=== PATIENT | female | born 2000 | race Hispanic/Latino ===

== ENCOUNTER 2024-02-11 07:25 | Emergency (ER) | payer SELFPAY ==
[2024-02-11] VITALS (9 sets, daily range): BP systolic 124–164; BP diastolic 59–79; PULSE 68–95; RESP 19; TEMP 37.2; O2SAT 94–100; BMI 46.0
--- NOTE | 2024-02-11 07:57 | ED.ABDPAIN ---
HPI - Abdominal Pain General Chief Complaint: Abdominal Pain Stated Complaint: r side abd pain, nausea Time Seen by Provider: 02/11/24 07:55 Source: patient Mode of arrival: Wheelchair History of Present Illness HPI narrative: Patient 23-year-old female remote history of ovarian cyst presenting today with severe right lower quadrant pain. She reports it started yesterday definitely starts in her right lower quadrant that radiates down her leg. She is unable to get comfortable. She is very minimal back pain. She feels nauseous. No vomiting she has not taken anything for pain. No fever or chills no painful frequent urination. Related Data Previous Rx's Medication Instructions Recorded cephalexin 500 mg capsule 500 mg PO BID 7 days #14 caps 02/11/24 hydrocodone 5 mg-acetaminophen 325 1 tab PO Q6H PRN pain #20 tabs 02/11/24 mg tablet ondansetron 4 mg disintegrating 4 mg PO Q8H PRN nausea and 02/11/24 tablet vomiting #10 tabs tamsulosin 0.4 mg capsule (Flomax) 0.4 mg PO BEDTIME #10 caps 02/11/24 Allergies Allergy/AdvReac Type Severity Reaction Status Date / Time No Known Drug Allergies Allergy Verified 02/11/24 07:46 Patient History Social History Smoking Status: Current every day smoker Smoking Status: Current every day smoker tobacco type: e-cigarettes and vaping alcohol intake frequency: holidays/special occasions only Substance Use Type: marijuana Exam Initial Vital Signs Initial Vital Signs: Vital Signs Temperature 99 F 02/11/24 07:41 Pulse Rate 87 02/11/24 07:41 Respiratory Rate 19 02/11/24 07:41 Blood Pressure 164/79 H 02/11/24 07:41 Pulse Oximetry 100 02/11/24 07:41 Oxygen Delivery Method Room Air 02/11/24 07:41 Course Orders Ordered: Discontinued Medications Ketorolac Tromethamine (Ketorolac 30 Mg/Ml Vial) 30 mg IV NOW ONE Stop: 02/11/24 08:06 Last Admin: 02/11/24 08:29 Dose: 30 mg Documented By: ALICIA Ondansetron HCl (Ondansetron 4 Mg Odt) 4 mg SL NOW PRN PRN Reason: Nausea And Vomiting Ondansetron HCl (Ondansetron 4 Mg/2 Ml Inj) 4 mg IV NOW PRN PRN Reason: Nausea And Vomiting Last Admin: 02/11/24 08:32 Dose: 4 mg Documented By: ALICIA Vital Signs Vital signs: Vital Signs - 8 hr 02/11/24 07:41 02/11/24 08:01 02/11/24 08:30 Temperature 99 F Pulse Rate 87 95 H Respiratory Rate 19 Blood Pressure 164/79 H 140/77 Pulse Oximetry 100 99 Oxygen Delivery Method Room Air 02/11/24 08:30 02/11/24 09:00 02/11/24 09:01 Temperature Pulse Rate 71 75 70 Respiratory Rate Blood Pressure Pulse Oximetry 99 97 98 Oxygen Delivery Method Room Air Room Air 02/11/24 09:01 02/11/24 09:30 02/11/24 10:00 Temperature Pulse Rate 76 73 Respiratory Rate Blood Pressure 145/66 H Pulse Oximetry 98 94 Oxygen Delivery Method Room Air MDM - Abdominal Pain Lab Data 02/11/24 07:59 02/11/24 07:59 Labs: Lab Results 02/11/24 02/11/24 Range/Units 07:59 08:19 WBC 11.3 H (4.5-11.0) X10^3/uL RBC 4.76 (4.0-5.2) X10^6/uL Hgb 13.8 (12.0-16.0) g/dL Hct 40.5 (36-46) % MCV 85.1 (80-100) fL MCH 29.0 (26-34) PG MCHC 34.1 (30-36) % RDW 12.5 (11.6-14.8) % Plt Count 310 (150-400) X10^3/uL Neut % (Auto) 60.5 (50-75) % Lymph % (Auto) 33.1 (25-40) % [place] % (Auto) 5.1 (3-14) % Eos % (Auto) 0.8 L (2-4) % Baso % (Auto) 0.5 (0-2) % Neut # (Auto) 6900 (0803-2319) /uL Lymph # (Auto) 3700 (7497-2010) /uL [place] # (Auto) 600 (0-900) /uL Eos # (Auto) 100 (0-450) /uL Baso # (Auto) 100 (0-100) /uL Sodium 140 (137-145) mmol/L Potassium 3.6 (3.4-5.1) mmol/L Chloride 106 (98-107) mmol/L Carbon Dioxide 25 (22-32) mmol/L BUN 8 (7-17) mg/dL Creatinine 0.67 (0.52-1.04) mg/dL Estimated GFR > 60 (>60) mL/min BUN/Creatinine Ratio 11.9 (6-22) Glucose 101 H (70-100) mg/dL Calcium 9.3 (8.4-10.2) mg/dL Total Bilirubin 0.7 (0.2-1.3) mg/dL AST 61 H (14-36) IU/L ALT 85 H (<35) IU/L Alkaline Phosphatase 78 (38-126) U/L Total Protein 8.1 (6.3-8.2) g/dL Albumin 4.7 (3.5-5.0) g/dL Globulin 3.4 (1.7-4.1) g/dL Albumin/Globulin Ratio 1.4 (1.0-2.8) Lipase 55 (23-300) U/L Urine RBC 10-30/hpf H (0-5/HPF) Urine WBC 30-100/hpf H (0-5/HPF) Ur Squamous Epith Cells 5-10 /hpf H (0-5/HPF) Urine Bacteria Many (>30) H (None) Ur Culture Indicated? Specimen cultured Vol Urine Centrifuged 10ml (spun) Point of care testing: Point of Care Testing Test Results Negative Urine Dip Bedside Urine Glucose Negative Bedside Urine Bilirubin - Negative Bedside Urine Ketone - Negative Urine Specific [place] 1.030 Bedside Urine Occult Blood +++ Bedside Urine pH 6.0 Bedside Urine Protein + 30 Bedside Urine Urobilinogen - Negative Bedside Urine Nitrite - Negative Bedside Urine Leukocytes +/- [address] scan - abdomen/pelvis: Radiologist's Impression: PROCEDURE: CT ABDOMEN PELVIS W CON INDICATIONS: RLQ pain TECHNIQUE: After the administration of intravenous contrast, axial sections acquired from the lung bases to the pubic symphysis. Coronal and sagittal reformats were performed. For radiation dose reduction, the following was used: automated exposure control, adjustment of mA and/or kV according to patient size. COMPARISON: None. FINDINGS: Image quality: Diagnostic. Lower Chest: No significant findings. ABDOMEN: Liver: No solid mass. Gallbladder: No radiopaque gallstones or wall thickening. Biliary ducts: No biliary dilation. Pancreas: No ductal dilation. Spleen: Size is within normal limits. Adrenal Glands: No adrenal nodules. Kidneys and Ureters: 5 x 7 millimeter stone within the right UVJ (411 Hounsfield unit), resulting moderate hydronephrosis, hydroureter and delayed nephrogram. Additional single nonobstructing right-sided nephrolithiasis measuring 4 millimeters. Stomach and Bowel: Normal colonic caliber, without significant wall thickening. Peritoneum: No abnormal intraperitoneal fluid. No free air. Ventral Wall: No significant ventral hernia. Small umbilical hernia containing fat. Abdominal Nodes: No retroperitoneal or mesenteric adenopathy by size criteria. Vessels: Aorta and inferior vena cava are normal in size. PELVIS: Pelvic Organs: Bilateral hemorrhagic ovarian cysts versus endometriomas measuring 4.3 centimeters on the right and 3.4 centimeters on the left. Bladder: No bladder wall thickening, accounting for underdistention. Pelvic Nodes: No enlarged lymph nodes. Miscellaneous: No inguinal hernias are seen. Bones: No aggressive osseous abnormality. IMPRESSION: Obstructing 5 x 7 millimeter stone in the right UVJ, resulting in moderate hydronephrosis and delayed nephrogram. Bilateral hemorrhagic ovarian cysts versus endometriomas. These could be further evaluated with pelvic ultrasound if necessary. Dictated by: Jose Issa M.D. on 02/11/2024 at 9:33 MDM Narrative Medical decision making narrative: Patient 23-year-old female presents today with quadrant pain yesterday rate down her leg tender and appears very uncomfortable. Blood work WBC 11.3 no significant anemia, CMP no electrolyte abnormalities creatinine 0.67, bilirubin 0.7, AST 61, ALT 85 lipase 55 Urinalysis does show some leukocytes and blood Imaging reviewed CT does show obstructing 5 x 7 mm stone at the UVJ with moderate hydro nephrosis Patient received Toradol and Zofran here in the ED overall feeling a bit better. At this time she does have obstructing right-sided stones 5 x 7 mm she may pass this on her own recommend urology outpatient follow-up and pain control. We will put her on antibiotics along with anti nausea medication and pain medication for home management. Patient reports that she is actually going back home to [place] in 1 week. Encourage her to follow-up with urology unlikely she will be able to get in with ours encouraged her to call her PCP to schedule urology. She has given a disc with her CT scan. Discharge Plan Departure Patient Disposition: Home Clinical Impression: Kidney stones Instructions: DI for Kidney Stones Activity Restrictions/Additional Instructions: *You have been diagnosed with kidney stone *What to do: At this time you do have a 5 x 7mm kidney stone on the right side. You may require help passing it with Urology. At this time your kidney function looks good. *Continue to take medications as directed Motrin 600 mg every 6 hours for lgjo-in-ataiafyh pain Zofran 4 mg every 8 hours for nausea or vomiting [place] 1 tablet every 6 hours for moderate to severe pain Keflex 500 mg twice a day for 7 days for infection Flomax at night-this may help to pass the kidney stone *Follow up with your primary care provider in 2-3 days or call [phone] *Return to ER if you should have increasing pain persistent vomiting fever, or any new, worsening or concerning symptoms CONTROLLED SUBSTANCE DISCHARGE (Narcotoic/benzodiazepine/Flexeril/Phenergan) 1. You have been prescribed narcotic medications, it does have acetaminophen/Tylenol/paracetamol in it, DO NOT TAKE MORE THAN 4,00mg in 24 hours of Tylenol. TRAMADOL DOES NOT CONTAIN TYLENOL 2. Please understand that we cannot provide further refills of narcotics, benzodiazepines or controlled substances through the ED and her pain management will need to be through your provider. 3. While on these medications you cannot drive or operate heavy machinery. 4. You cannot sign legal documents or perform any duties such as this. 5. As long as you're taking opiate pain medications he should also be taking a stool softener such as Colace, Dulcolax, MiraLAX or prune juice, to help avoid constipation. Prescriptions: New hydrocodone-acetaminophen 5-325 mg tablet 1 tab PO Q6H PRN (Reason: pain) Qty: 20 0RF tamsulosin [Flomax] 0.4 mg capsule 0.4 mg PO BEDTIME Qty: 10 0RF cephalexin 500 mg capsule 500 mg PO BID 7 Days Qty: 14 0RF ondansetron 4 mg tablet,disintegrating 4 mg PO Q8H PRN (Reason: nausea and vomiting) Qty: 10 0RF Referrals: Patrice Kingston MD [Physician] - Jordy Albrecht MD [Physician] - Stand Alone Forms: Patient Portal/API
[2024-02-11 08:12] LABS: Add Manual Diff / Slide Review NO; Basophils Absolute Auto 100 /uL (0-100); Basophils Percent Auto 0.5 % (0-2); Eosinophils Absolute Auto 100 /uL (0-450); Eosinophils Percent Auto 0.8 % (2-4); Hematocrit 40.5 % (36-46); Hemoglobin 13.8 g/dL (12.0-16.0); Lymphocytes Absolute Auto 3700 /uL (1100-4500); Lymphocytes Percent Auto 33.1 % (25-40); Mean Corpuscular HGB Conc 34.1 % (30-36); Mean Corpuscular Volume 85.1 fL (80-100); Monocytes Absolute Auto 600 /uL (0-900); Monocytes Percent Auto 5.1 % (3-14); Neutrophils Absolute Auto 6900 /uL (1500-7000); Neutrophils Percent Auto 60.5 % (50-75); Platelet Count 310 X10^3/uL (150-400); Red Blood Cell Count 4.76 X10^6/uL (4.0-5.2); Red Cell Distribution Width 12.5 % (11.6-14.8); White Blood Cell Count 11.3 X10^3/uL (4.5-11.0)
[2024-02-11 08:20] LABS: Alanine Aminotransferase 85 IU/L (<35); Albumin 4.7 g/dL (3.5-5.0); Albumin Globulin Ratio 1.4 (1.0-2.8); Alkaline Phosphatase 78 U/L (38-126); Aspartate Aminotransferase 61 IU/L (14-36); BUN Creatinine Ratio 11.9 (6-22); Bilirubin Total 0.7 mg/dL (0.2-1.3); Blood Urea Nitrogen 8 mg/dL (7-17); Calcium 9.3 mg/dL (8.4-10.2); Carbon Dioxide 25 mmol/L (22-32); Chloride 106 mmol/L (98-107); Estimated Glomerular Filt Rate > 60 mL/min (>60); Globulin 3.4 g/dL (1.7-4.1); Glucose 101 mg/dL (70-100); HEMOLYSIS 35 (0-50); Lipase 55 U/L (23-300); Potassium 3.6 mmol/L (3.4-5.1); Sodium 140 mmol/L (137-145); Total Protein 8.1 g/dL (6.3-8.2)
[2024-02-11 08:23] LABS: Urine Volume 10mL (spun)
[2024-02-11 08:24] LABS: Bacteria Urine Many (>30); Culture Indicated Urine Specimen Cultured; RBC Urine 10-30/HPF (0-5/HPF); Squamous Epithelial Cell Urine 5-10 /HPF (0-5/HPF); WBC Urine 30-100/HPF (0-5/HPF)
[2024-02-11] MEDS: KETOROLAC 30 MG/ML VIAL IV (08:29)
[2024-02-11] MEDS: ONDANSETRON 4 MG/2 ML INJ IV (08:32)
--- NOTE | 2024-02-11 09:03 | DI.CT.S_ITS ---
PROCEDURE: CT ABDOMEN PELVIS W CON INDICATIONS: RLQ pain TECHNIQUE: After the administration of intravenous contrast, axial sections acquired from the lung bases to the pubic symphysis. Coronal and sagittal reformats were performed. For radiation dose reduction, the following was used: automated exposure control, adjustment of mA and/or kV according to patient size. COMPARISON: None. FINDINGS: Image quality: Diagnostic. Lower Chest: No significant findings. ABDOMEN: Liver: No solid mass. Gallbladder: No radiopaque gallstones or wall thickening. Biliary ducts: No biliary dilation. Pancreas: No ductal dilation. Spleen: Size is within normal limits. Adrenal Glands: No adrenal nodules. Kidneys and Ureters: 5 x 7 millimeter stone within the right UVJ (411 Hounsfield unit), resulting moderate hydronephrosis, hydroureter and delayed nephrogram. Additional single nonobstructing right-sided nephrolithiasis measuring 4 millimeters. Stomach and Bowel: Normal colonic caliber, without significant wall thickening. Peritoneum: No abnormal intraperitoneal fluid. No free air. Ventral Wall: No significant ventral hernia. Small umbilical hernia containing fat. Abdominal Nodes: No retroperitoneal or mesenteric adenopathy by size criteria. Vessels: Aorta and inferior vena cava are normal in size. PELVIS: Pelvic Organs: Bilateral hemorrhagic ovarian cysts versus endometriomas measuring 4.3 centimeters on the right and 3.4 centimeters on the left. Bladder: No bladder wall thickening, accounting for underdistention. Pelvic Nodes: No enlarged lymph nodes. Miscellaneous: No inguinal hernias are seen. Bones: No aggressive osseous abnormality. IMPRESSION: Obstructing 5 x 7 millimeter stone in the right UVJ, resulting in moderate hydronephrosis and delayed nephrogram. Bilateral hemorrhagic ovarian cysts versus endometriomas. These could be further evaluated with pelvic ultrasound if necessary. Dictated by: Jose Issa M.D. on 02/11/2024 at 9:33 Approved by: Jose Issa M.D. on 02/11/2024 at 9:36
== END 2024-02-11 10:34 | disposition home or self-care (01) ==
PROVIDERS: Emergency Provider Emergency Medicine
DX: N13.2 Hydronephrosis with renal and ureteral calculous obstruction (principal)
CPT/HCPCS: 36415; 74177; 80053; 81003; 81015; 81025; 83690; 85025; 87086; 96374; 96375; 99284; J1885; J2405; Q9967